=== PATIENT | female | born 2000 | race Two or more races ===

== ENCOUNTER → 2020-04-30 | Outpatient (CLI) | payer OTHER | END | disposition home or self-care (01) | LOC: RX STUDY 07:21 | PROVIDERS: ATTEND Pediatrics Pediatric Gastroenterology | DX: Q42.3 Congenital absence, atresia and stenosis of anus without fistula (principal) ==

== ENCOUNTER 2022-11-09 19:24 | Emergency (ER) | payer OTHER ==
[~2022-11-09] VITALS: Ht 170.2 cm; Wt 74.8 kg
[2022-11-09] MEDS ORDERED: TRI-SPRINTEC T1 EACH PO (19:45)
== END 2022-11-09 23:25 | disposition home or self-care (01) ==
LOC: ER 19:24
DX: R10.9 Unspecified abdominal pain (principal); Z20.822 Contact with and (suspected) exposure to COVID-19